=== PATIENT | female | born 1960 | race African-American/Black ===

== ENCOUNTER 2021-09-25 09:10 | Outpatient (CLI) | payer OTHER, MEDICAID | END 2021-09-25 09:11 | disposition home or self-care (01) | LOC: BICMAMMO 09:10 | PROVIDERS: ATTEND Nurse Practitioner Family | DX: Z12.31 Encounter for screening mammogram for malignant neoplasm of breast (principal) | CPT/HCPCS: 77067 ==

== ENCOUNTER 2022-10-07 12:41 | Outpatient (CLI) | payer MEDICAID | END 2022-10-07 12:42 | disposition home or self-care (01) | LOC: BICMAMMO 12:41 | PROVIDERS: ATTEND Nurse Practitioner Family | DX: Z12.31 Encounter for screening mammogram for malignant neoplasm of breast (principal) | CPT/HCPCS: 77067 ==